=== PATIENT | male | born 1955 | race Caucasian/White ===

== ENCOUNTER 2021-10-12 18:06 | Emergency (ER) | payer OTHER ==
[2021-10-12 18:39] VITALS: BP 136/100; PULSE 76
== END 2021-10-12 20:35 | disposition home or self-care (01) ==
LOC: JD.ED 18:06
DX: S16.1XXA Strain of muscle, fascia and tendon at neck level, initial encounter (principal); K21.9 Gastro-esophageal reflux disease without esophagitis; E05.90 Thyrotoxicosis, unspecified without thyrotoxic crisis or storm; F17.210 Nicotine dependence, cigarettes, uncomplicated; Z79.899 Other long term (current) drug therapy; V53.5XXA Driver of pick-up truck or van injured in collision with car, pick-up truck or van in traffic accident, initial encounter; Y92.410 Unspecified street and highway as the place of occurrence of the external cause
CPT/HCPCS: 72125; 72125-26; 99282; 99284-25

== ENCOUNTER 2024-03-04 17:50 | Emergency (ER) | payer SELFPAY ==
[2024-03-04 18:02] VITALS: BP 164/107; PULSE 86
[2024-03-04] MEDS ORDERED: Sodium Chloride 0.9% 10 ML Syringe FLUSH PRN (19:44)
[2024-03-04] MEDS ORDERED: Bupivacaine 0.5% 30 ML SDV INFILT ONE (19:44)
[2024-03-04] MEDS ORDERED: Lidocaine 1% 10 ML MDV ONE (20:27)
[2024-03-04] MEDS ORDERED: Lidocaine 1% 10 ML MDV INJECT ONE (20:29)
[2024-03-04] MEDS ORDERED: Naloxone 0.4 MG/ML SDV IVPUSH PRN (21:03)
[2024-03-04] MEDS: Ketorolac 60 MG/2 ML SDV IM ONE (21:32)
[2024-03-04] MEDS: ceFAZolin 1 GM Vial IM ONE (21:48)
[2024-03-04] MEDS: Meperidine 50 MG/ML Vial SUBCUT ONE (23:15)
[2024-03-04] MEDS: Diphtheria,Pertussis(Acell),Tetanus Vaccine 0.5 ML Syringe IM ONE (23:27)
[2024-03-05] MEDS: ceFAZolin 1 GM Vial ONE (02:26)
== END 2024-03-04 23:55 | disposition home or self-care (01) ==
LOC: JD.ED 17:50
DX: S68.112A Complete traumatic metacarpophalangeal amputation of right middle finger, initial encounter (principal); E78.00 Pure hypercholesterolemia, unspecified; K21.9 Gastro-esophageal reflux disease without esophagitis; E03.9 Hypothyroidism, unspecified; F17.210 Nicotine dependence, cigarettes, uncomplicated; Z79.82 Long term (current) use of aspirin; Z79.899 Other long term (current) drug therapy; Z23 Encounter for immunization; W23.1XXA Caught, crushed, jammed, or pinched between stationary objects, initial encounter
CPT/HCPCS: 73140; 90471; 90715; 96372; 99283; J0690; J1885